=== PATIENT | female | born 1975 | race Caucasian/White ===

== ENCOUNTER 2020-01-21 22:44 | Emergency (ER) | payer BC ==
--- OUTSIDE RECORDS SUMMARY | 2020-01-21 22:46 | XMS REPORT | Summary of Care ---
:1975 Author Name EDWINA ARCOS M.D. Address Unavailable Unavailable , Care Team Providers Name Role Phone JOSSELYN Ramirez, EDWINA Unavailable Unavailable Edwina Arcos MD Unavailable Unavailable Unavailable Unavailable Unavailable Functional Status Name Dates Details Functional status health issues are not documented Status: Name Dates Details Cognitive status health issues are not documented Status: Problems Name Dates Details Breast mass (611.72, N63.0) Status: Active Medications Name Dates Details Medications not documented Allergies and Adverse Reactions Name Dates Details No Known Drug Allergies (Allergy) Status: Active Past Medical History Name Dates Details History of cholelithiasis (V12.79, Z87.19) Status: Resolved Procedures Procedure Dates Details History of Cholecystectomy laparoscopic Completed Immunization Name Dates Details Immunizations not documented Family History Name Dates Details Family history of Hodgkin's lymphoma (V16.7, Z80.7) Status: Active Social History Name Dates Details - Status: Name Dates Details Never smoker Vital Signs Date Test Result Details [id number] BP Systolic 127 mm[Hg] Status: BP Diastolic 82 mm[Hg] Status: Height 64 in Status: Weight 159 lb Status: Body Mass Index Calculated 27.29 kg/m2 Status: Body Surface Area Calculated 1.77 m2 Status: Temperature 98.2 f Status: Heart Rate 107 /min Status: Results Date Description Value Details Results not documented Plan of Care Name Dates Details Planned Observations Planned Goals not documented Interventions Provided PlanPt. is a 43 y/o F with no significant PMH who presents to breast surgery clinic after routine mammogram 08/18 demonstrated R breast mass with US guided biopsy significant for benign dense fibrous tissue with follow up ultrasound failing to show any significant difference in terms of mass size.-On exam no mass palpated, pt. asymptomatic.-No intervention or further biopsy warranted at this time.-Recommend f/u R breast ultrasound in 6 months with return to clinic at that time.Pt. seen and examined with attending surgeon Dr. Josselyn MD.Juan Guidry MDVascular Surgery PGy3 Instructions Name Dates Details Instructions not documented Encounters Appointment; EDWINA ARCOS M.D. On: 11-Oct-2018 14:00 Encounter Diagnosis: Problem not documented
[2020-01-21 23:18] LABS: Absolute Lymphocytes (CBC) 3.1 K/uL (0.7-4.9); Hematocrit 37.5 % (36.0-45.0); Lymphocytes % 25.1 % (15.3-44.8); RBC Red Blood Cell Count 4.16 M/uL (3.86-4.86)
[2020-01-21] MEDS ORDERED: NA CHLORIDE 0.9% 1,000 ML ONE (23:39)
[2020-01-21 23:40] LABS: Urine Blood NEGATIVE (NEG); Urine Glucose NEGATIVE (NEG); Urine Protein NEGATIVE (NEG); Urine Specific Gravity >1.030 (1.005-1.030)
[2020-01-21 23:42] LABS: ALT/SGPT 22 U/L (12-78); AST/SGOT 16 U/L (15-37); Albumin 3.6 g/dL (3.4-5.0); Alkaline Phosphatase 76 U/L (45-117); BUN Blood Urea Nitrogen 12 mg/dL (7-18); Bicarbonate 28 mmol/L (21-32); Bilirubin Direct < 0.1 mg/dL (0-0.2); Bilirubin Total 0.2 mg/dL (0.2-1.0); Glucose Level 93 mg/dL (74-106); Lipase 167 U/L (73-393); Potassium 3.5 mmol/L (3.5-5.1); Protein, Total 7.8 g/dL (6.4-8.2); Sodium Level 141 mmol/L (136-145)
[2020-01-22] MEDS ORDERED: KETOROLAC 30 MG/ML INJ ONE (00:47)
--- NOTE | 2020-01-22 01:34 | EDPHYS ---
Physician Documentation [facility] Name: Elen Robbins Age: 44 yrs Sex: Female : 1975 Arrival Date: 01/21/2020 Time: 22:44 Bed 18 Private MD: ED Physician Simba Fowler HPI: 01/20 23:00 This 44 yrs old Female presents to ER via Ambulatory with complaints of pm1 Abdominal Pain. 23:00 The patient presents with abdominal pain in the lower abdomen. Onset: The pm1 symptoms/episode began/occurred 1 week(s) ago. The symptoms do not radiate. Associated signs and symptoms: Pertinent positives: nausea, Pertinent negatives: chest pain, constipation, diarrhea, dysuria, fever, shortness of breath, vomiting. The symptoms are described as crampy, Bloated. Modifying factors: The symptoms are alleviated by nothing, the symptoms are aggravated by nothing. Severity of pain: in the emergency department the pain is actually worse. Feels like she is ovulating but the pain usually last for only one day and is resolved with nsaid. Pain is lasting no longer and not relieved with OTC medications. It is unknown whether or not the patient has recently seen a physician. 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 - Social history:: Smoking status: Patient/guardian denies using. ROS: 23:00 Constitutional: Negative for fever, chills, and weight loss, Neck: Negative for injury, pm1 pain, and swelling, Cardiovascular: Negative for chest pain, palpitations, and edema, Respiratory: Negative for shortness of breath, cough, wheezing, and pleuritic chest pain. 23:00 Back: Negative for injury and pain, : Negative for injury, bleeding, discharge, and swelling, MS/Extremity: Negative for injury and deformity, Skin: Negative for injury, rash, and discoloration, Neuro: Negative for headache, weakness, numbness, tingling, and seizure. 23:00 Abdomen/GI: Positive for abdominal pain, nausea, Negative for vomiting, diarrhea, constipation. Exam: 23:00 Constitutional: This is a well developed, well nourished patient who is awake, alert, pm1 and in no acute distress. Head/Face: Normocephalic, atraumatic. Chest/axilla: Normal chest wall appearance and motion. Nontender with no deformity. No lesions are appreciated. Cardiovascular: Regular rate and rhythm with a normal S1 and S2. No gallops, murmurs, or rubs. Normal PMI, no JVD. No pulse deficits. Respiratory: Lungs have equal breath sounds bilaterally, clear to auscultation and percussion. No rales, rhonchi or wheezes noted. No increased work of breathing, no retractions or nasal flaring. 23:00 Skin: Warm, dry with normal turgor. Normal color with no rashes, no lesions, and no evidence of cellulitis. MS/ Extremity: Pulses equal, no cyanosis. Neurovascular intact. Full, normal range of motion. 23:00 Abdomen/GI: Inspection: abdomen appears normal, Bowel sounds: normal, Palpation: soft, in all quadrants, mild abdominal tenderness, in the left lower quadrant. 23:00 Back: pain, that is mild, of the left low back, normal spinal alignment noted. 23:00 Neuro: Orientation: is normal, Motor: is normal, moves all fours. Vital Signs: 22:57 BP 148 / 78; Pulse 99; Resp 18; Temp 98.3; Pulse Ox 100% ; Weight 70.31 kg; Height 5 wh ft. 4 in. (162.56 cm); Pain 3/10; 01/21 00:30 BP 121 / 69; Pulse 76; Resp 18; Pulse Ox 99% on R/A; wh 01:56 BP 124 / 77; Pulse 82; Resp 18; Pulse Ox 99% on R/A; wh 02:55 BP 110 / 69; Pulse 76; Resp 18; Pulse Ox 100% on R/A; wh 01/20 22:57 Body Mass Index 26.61 (70.31 kg, 162.56 cm) wh MDM: 01/20 22:53 Patient medically screened. pm1 23:03 Data reviewed: vital signs. Data interpreted: Pulse oximetry: on room air is 100 %. pm1 Interpretation: normal. 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 Patient reports appointment with ABBI Beltran, on Thursday. 01:36 ED course: CELL LEAD aware reviewed. pm1 01/20 23:00 Order name: Basic Metabolic Panel pm1 01/20 23:00 Order name: CBC with Diff; Complete Time: 23:29 pm1 01/20 23:00 Order name: Creatinine for Radiology; Complete Time: 23:48 pm1 01/20 23:00 Order name: Hepatic Function; Complete Time: 23:48 pm1 01/20 23:00 Order name: Lipase; Complete Time: 23:48 pm1 01/20 23:01 Order name: Basic Metabolic Panel; Complete Time: 23:48 EDMS 01/20 23:00 Order name: CT Abd/Pelvis - IV Contrast Only pm1 01/20 23:10 Order name: Urine Dipstick--Ancillary (enter results); Complete Time: 23:48 mw2 01/20 23:10 Order name: Urine --Ancillary (enter results); Complete Time: 23:48 mw2 01/20 23:00 Order name: IV Saline Lock; Complete Time: 23:31 pm1 01/20 23:00 Order name: Labs collected and sent; Complete Time: 23:32 pm1 01/20 23:00 Order name: Urine Dipstick-Ancillary (obtain specimen); Complete Time: 23:31 pm1 01/20 23:00 Order name: Urine Test (obtain specimen); Complete Time: 23:31 pm1 01/20 23:00 Order name: NPO; Complete Time: 23:31 pm1 Administered Medications: 01/20 23:37 Drug: NS 0.9% 1000 ml Route: IV; Rate: 1000 ml; Site: right antecubital; 01/21 01:54 Follow up: Response: No adverse reaction; IV Status: Completed infusion 00:56 Drug: TORadol - Ketorolac 15 mg Route: IVP; Site: right antecubital; 01:54 Follow up: Response: No adverse reaction; Pain is decreased 01:53 Drug: Flagyl 500 mg Volume: 100 ml; Route: IVPB; Rate: 200 ml/hr; Infused Over: 30 wh mins; Site: right antecubital; 02:56 Follow up: Response: No adverse reaction; IV Status: Completed infusion 01:54 Not Given (Patient Refused): morphine 4 mg IVP once; RASS on ADMIN: Combtv4, Very wh Agttd3, Agttd2, Rstlss1, AlertClm0, Drwsy-1, Lt Sdtn-2, Mod Sdtn-3, Dp Sdtn-4, UnArsble-5 01:54 Drug: LevaQUIN 750 mg Route: PO; 02:56 Follow up: Response: No adverse reaction 01:55 Not Given (Patient Refused): Zofran (Ondansetron) 4 mg IVP once; over 2 minutes wh Disposition: 18:01 Co-signature as Attending Physician, Simba Fowler MD I agree with the assessment and ashish plan of care. Disposition: 01/22/20 01:34 Discharged to Home. Impression: Diverticulitis of large intestine without perforation or abscess without bleeding. - Condition is Stable. - Discharge Instructions: Clear Liquid Diet, Adult, Diverticulitis. - Prescriptions for Bentyl 20 mg Oral Tablet - take 1 tablet by ORAL route every 6 hours As needed; 20 tablet. Flagyl 500 mg Oral Tablet - take 1 tablet by ORAL route every 6 hours for 10 days; 40 tablet. Levaquin 750 mg Oral Tablet - take 1 tablet by ORAL route once daily for 10 days; 10 tablet. Tylenol- Codeine #3 300-30 mg Oral Tablet - take 2 tablets by ORAL route every 6 hours As needed; 20 tablet. Zofran 4 mg Oral Tablet - take 1 tablet by ORAL route every 12 hours As needed; 20 tablet. - Medication Reconciliation Form, Thank You Letter, Antibiotic Education, Prescription Opioid Use form. - Follow up: Emergency Department; When: As needed; Reason: Worsening of condition. Follow up: Private Physician; When: 2 - 3 days; Reason: Recheck today's complaints, Continuance of care, Re-evaluation by your physician. - Problem is new. - Symptoms have improved. Signatures: Dispatcher [employer] EDSimba Hall MD MD cha Marinas, Patrick, FITTER MECHANIC FITTER MECHANIC pm1 Jennifer Francis Corrections: (The following items were deleted from the chart) 03:00 01:34 01/22/2020 01:34 Discharged to Home. Impression: Diverticulitis of large wh intestine without perforation or abscess without bleeding. Condition is Stable. Forms are Medication Reconciliation Form, Thank You Letter, Antibiotic Education, Prescription Opioid Use. Follow up: Emergency Department; When: As needed; Reason: Worsening of condition. Follow up: Private Physician; When: 2 - 3 days; Reason: Recheck today's complaints, Continuance of care, Re-evaluation by your physician. Problem is new. Symptoms have improved. pm1
--- NOTE | 2020-01-22 01:34 | ER ---
Nurse's Notes [facility] [place] Name: Elen Robbins Age: 44 yrs Sex: Female : 1975 Arrival Date: 01/21/2020 Time: 22:44 Bed 18 Private MD: Diagnosis: Diverticulitis of large intestine without perforation or abscess without bleeding Presentation: 01/20 22:57 Chief complaint: Patient states: lower abdominal pain on and off that started Thursday. wh Denies any associated symptoms like fever, nausea, vomiting or diarrhea. Coronavirus screen: Patient denies fever greater than 100.4F, cough, shortness of breath, or difficulty breathing. Ebola Screen: Patient negative for fever greater than or equal to 101.5 degrees Fahrenheit, and additional compatible Ebola Virus Disease symptoms Patient denies exposure to infectious person. Initial Sepsis Screen: Does the patient meet any 2 criteria? HR > 90 bpm. Does the patient have a suspected source of infection? Yes: Acute abdominal pain. Risk Assessment: Do you want to hurt yourself or someone else? Patient reports no desire to harm self or others. 22:57 Method Of Arrival: Ambulatory 22:57 Acuity: ELIO 3 23:03 Onset of symptoms is unknown. 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 - Social history:: Smoking status: Patient/guardian denies using. Screenin:00 Abuse screen: Denies threats or abuse. Denies injuries from another. Nutritional screening: No deficits noted. Tuberculosis screening: No symptoms or risk factors identified. Fall Risk None identified. Assessment: 23:00 General: Appears in no apparent distress. Behavior is calm, cooperative, appropriate for age. Pain: Complains of pain in right lower quadrant and left lower quadrant Pain does not radiate. Pain currently is 3 out of 10 on a pain scale. Is intermittent. Neuro: Level of Consciousness is awake, alert, obeys commands, Oriented to person, place, time, situation, Appropriate for age. Cardiovascular: Heart tones S1 S2. Respiratory: Airway is patent Respiratory effort is even, unlabored, Respiratory pattern is regular, symmetrical, Breath sounds are clear bilaterally. GI: Abdomen is flat, non-distended, Bowel sounds present X 4 quads. Abd is soft and non tender X 4 quads. Reports lower abdominal pain. : No signs and/or symptoms were reported regarding the genitourinary system. EENT: No signs and/or symptoms were reported regarding the EENT system. Derm: Skin is intact, is healthy with good turgor, Skin is pink, warm \T\ dry. normal. Musculoskeletal: Circulation, motion, and sensation intact. 01/21 00:30 Reassessment: Patient appears in no apparent distress at this time. No changes from previously documented assessment. Patient and/or family updated on plan of care and expected duration. Pain level reassessed. Patient is alert, oriented x 3, equal unlabored respirations, skin warm/dry/pink. 01:55 Reassessment: Patient appears in no apparent distress at this time. No changes from previously documented assessment. Patient and/or family updated on plan of care and expected duration. Pain level reassessed. Patient is alert, oriented x 3, equal unlabored respirations, skin warm/dry/pink. Pt for DC after completion of Iv Abx. 02:55 Reassessment: Patient appears in no apparent distress at this time. No changes from previously documented assessment. Patient and/or family updated on plan of care and expected duration. Pain level reassessed. Patient is alert, oriented x 3, equal unlabored respirations, skin warm/dry/pink. Patient states feeling better. Patient states symptoms have improved. Vital Signs: 01/20 22:57 BP 148 / 78; Pulse 99; Resp 18; Temp 98.3; Pulse Ox 100% ; Weight 70.31 kg; Height 5 wh ft. 4 in. (162.56 cm); Pain 3/10; 01/21 00:30 BP 121 / 69; Pulse 76; Resp 18; Pulse Ox 99% on R/A; wh 01:56 BP 124 / 77; Pulse 82; Resp 18; Pulse Ox 99% on R/A; wh 02:55 BP 110 / 69; Pulse 76; Resp 18; Pulse Ox 100% on R/A; 01/20 22:57 Body Mass Index 26.61 (70.31 kg, 162.56 cm) ED Course: 01/20 22:44 Patient arrived in ED. es 22:46 Jennifer Francis is Primary Nurse. wh 22:47 Luke Molina NP is PHCP. pm1 22:47 Simba Fowler MD is Attending Physician. pm1 23:00 Triage completed. 23:02 Arm band placed on right wrist. 23:03 Patient has correct armband on for positive identification. Bed in low position. Call light in reach. Side rails up X 1. Pulse ox on. NIBP on. 23:10 Inserted saline lock: 20 gauge in right antecubital area, using aseptic technique. Blood collected. By [employer]. 01/21 00:56 CT Abd/Pelvis - IV Contrast Only In Process Unspecified. EDMS 02:57 No provider procedures requiring assistance completed. IV discontinued, intact, wh bleeding controlled, No redness/swelling at site. Administered Medications: 01/20 23:37 Drug: NS 0.9% 1000 ml Route: IV; Rate: 1000 ml; Site: right antecubital; 01/21 01:54 Follow up: Response: No adverse reaction; IV Status: Completed infusion 00:56 Drug: TORadol - Ketorolac 15 mg Route: IVP; Site: right antecubital; 01:54 Follow up: Response: No adverse reaction; Pain is decreased 01:53 Drug: Flagyl 500 mg Volume: 100 ml; Route: IVPB; Rate: 200 ml/hr; Infused Over: 30 wh mins; Site: right antecubital; 02:56 Follow up: Response: No adverse reaction; IV Status: Completed infusion 01:54 Not Given (Patient Refused): morphine 4 mg IVP once; RASS on ADMIN: Combtv4, Very wh Agttd3, Agttd2, Rstlss1, AlertClm0, Drwsy-1, Lt Sdtn-2, Mod Sdtn-3, Dp Sdtn-4, UnArsble-5 01:54 Drug: LevaQUIN 750 mg Route: PO; 02:56 Follow up: Response: No adverse reaction 01:55 Not Given (Patient Refused): Zofran (Ondansetron) 4 mg IVP once; over 2 minutes Outcome: 01:34 Discharge ordered by . pm1 02:58 Discharged to home ambulatory. 02:58 Condition: stable 02:58 Discharge instructions given to patient, Instructed on discharge instructions, follow up and referral plans. no drinking with medication, no driving heavy equipment, medication usage, POC Demonstrated understanding of instructions, follow-up care, medications, POC Prescriptions given X x6 03:00 Patient left the ED. Signatures: Dispatcher [employer] EDLiana Collazo Patrick, DIRECTOR OF INSTITUTIONAL GIVING DIRECTOR OF INSTITUTIONAL GIVING pm1 Jennifer Francis
[2020-01-22 03:15] VITALS: TEMP 98.3
[2020-01-22 03:19] VITALS: BP 110/69; O2SAT 100
--- NOTE | 2020-01-22 21:22 | RAD REPORT ---
EXAM DESCRIPTION: CT - Abdomen Pelvis W Contrast - 01/22/2020 6:06 am CLINICAL HISTORY: ABD PAIN COMPARISON: None. TECHNIQUE: CT ABDOMEN PELVIS WITH IV CONTRAST on 01/21/2020 11:00 PM CDT This exam was performed according to our departmental dose-optimization program, which includes autom ated exposure control, adjustment of the mA and/or kV according to patient size and/or use of iterati ve reconstruction technique. FINDINGS: Lower lungs are clear. Abdomen: There is a small cyst in the anterior liver. There are several tiny cysts in the posterior r ight lobe of the liver. There is no biliary dilatation. Cholecystectomy was performed. The pancreas a nd spleen are normal in appearance. The adrenal glands and kidneys are unremarkable. Abdominal aorta is normal in course and caliber without aneurysm. There is no free air. There is no r etroperitoneal adenopathy. Pelvis: There is extensive thickening of the distal descending colon with moderate surrounding inflam mation. There are multiple diverticula in the area. Urinary bladder is unremarkable. There is no free fluid. Uterus is grossly enlarged with a large anterior presumed fibroid measuring 11 cm. Appendix i s normal. Skeleton: There are no acute osseous findings. No suspicious bony lesions. IMPRESSION: Acute distal descending colonic diverticulitis. Recommend follow-up colonoscopy to exclu de an underlying mass. Abnormal appearance of the uterus of the likely large fundal fibroid. Consider nonemergent ultrasound . Electronically signed by: Marlon Kurtz MD 01/22/2020 1:02 AM CDT Due to temporary technical issues with the PACS/Fluency reporting system, reports are being signed by the in house radiologist as a courtesy to ensure prompt reporting. The interpreting radiologist is f davidly responsible for the content of the report.
== END 2020-01-22 03:00 | disposition home or self-care (01) ==
LOC: ER 22:44
DX: K57.32 Diverticulitis of large intestine without perforation or abscess without bleeding (principal)
CPT/HCPCS: 96365; 96361; 85025; 80048; 36415; 81025; 80076; 81003; 83690; 74177; 96375; 99284; Q9967; J7030